=== PATIENT | male | born 1995 | race Caucasian/White ===

== ENCOUNTER 2023-09-15 10:00 | Outpatient (OUT) | payer BC, SELFPAY ==
--- NOTE | 2023-09-15 | ECG_ITS ---
[facility] Test Date: 2023-09-15 Pat Name: GUSTAVO WOLF Department: Room: - Gender: Male [employer] Working [employer]: : 1995 Requested By: ATIF WILSON Order Number: [id number] Reading MD: CANDIE ROSALES Measurements Intervals [place] Rate: 57 P: 38 GA: 194 QRS: 82 QRSD: 101 T: 52 QT: 387 QTc: 379 Interpretive Statements SINUS BRADYCARDIA LEFT ATRIAL ENLARGEMENT [-0.15mV P WAVE IN V1/V2] Compared to ECG 11/28/2017 23:38:01 Atrial abnormality now present Sinus rhythm no longer present First degree AV block no longer present Electronically Signed On 09-15-2023 22:13:13 EDT by CANDIE ROSALES
[2023-09-15 11:02] LABS: Basophils Percent Auto 0.5 % (0.2-2.0); Eosinophils Absolute Auto 0.2 10^3/uL (0.0-0.7); Eosinophils Percent Auto 3.2 % (0.9-7.0); Hematocrit 45.3 % (42.0-54.0); Hemoglobin 15.1 g/dL (14.0-18.0); Immature Granulocytes Abs Auto 0.02 10^3/uL (0.00-0.03); Immature Granulocytes Pct Auto 0.4 % (0.0-0.5); Lymphocytes Absolute Auto 1.6 10^3/uL (1.2-3.8); Lymphocytes Percent Auto 28.3 % (20.5-60.0); Mean Corpuscular HGB Conc 33.3 g/dL (29.9-35.2); Mean Corpuscular Hemoglobin 29.1 pg (25.9-34.0); Mean Corpuscular Volume 87.3 fL (80.0-94.0); Monocytes Absolute Auto 0.6 10^3/uL (0.3-0.8); Neutrophils Absolute Auto 3.1 10^3/uL (1.4-6.5); Neutrophils Percent Auto 56.6 % (43.0-75.0); Platelet Count 300 10^3/uL (150-450); Red Blood Count 5.19 10^6/uL (4.70-6.10); Red Cell Distribution Width 12.1 % (11.0-15.0); White Blood Count 5.6 10^3/uL (4.0-11.0)
[2023-09-15 12:02] LABS: Alanine Aminotransferase 23 U/L (16-63); Albumin Globulin Ratio 1.2; Alkaline Phosphatase 90 U/L (46-116); Anion Gap 15.1; Aspartate Amino Transferase 17 U/L (15-37); BUN Creatinine Ratio 10.5; Bilirubin Total 0.5 mg/dL (0.2-1.0); Calcium 8.7 mg/dL (8.5-10.1); Carbon Dioxide 25.2 mmol/L (21.0-32.0); Chloride 105 mmol/L (98-107); Chol HDL Ratio 2.5; Cholesterol 129 mg/dL (<=200); Estimated GFR (African America >60 (>=60); Estimated GFR (Non-African Ame >60 (>=60); Globulin 3.3 g/dL; Glucose 79 mg/dL (74-106); HDL Cholesterol 51 mg/dL (40-60); LDL Cholesterol Calculated 67.4 mg/dL; Potassium 4.3 mmol/L (3.5-5.1); Sodium 141 mmol/L (136-145); Thyroid Stimulating Hormone 2.792 uIU/mL (0.358-3.740); Total Protein 7.3 g/dL (6.4-8.2); Triglycerides 53 mg/dL (<=150); VLDL CHOLESTEROL 10.6 mg/dL
== END 2023-09-15 10:01 | disposition home or self-care (01) ==
PROVIDERS: PCP Family Medicine; Visit Provider Family Medicine
DX: Z00.00 Encounter for general adult medical examination without abnormal findings (principal); R07.9 Chest pain, unspecified
CPT/HCPCS: 36415; 80053; 80061; 84443; 85025; 93005

== ENCOUNTER 2023-09-28 08:54 | Outpatient (OUT) | payer BC, SELFPAY ==
--- NOTE | 2023-09-28 09:00 | CA_ITS ---
Patient Name: GUSTAVO WOLF MR#: [id number] : 1995 Exam Date: 09/28/2023 Ordering Doctor: DR Veena Page M.D. ECHOCARDIOGRAM REPORT PROCEDURE: CA ECHO DOPPLER COMPLETE INDICATIONS: Left atrial enlargement and cardiomegaly seen on ECG COMPARISON: None. DESCRIPTION: COMPLETE ECHOCARDIOGRAM Real-time transthoracic echocardiography with 2D, M-mode, spectral and color flow Doppler performed. QUALITY: Technical quality was good. 72 , 190#, BP 138/80 LEFT VENTRICLE: Normal chamber size. Normal left ventricular wall thickness. Normal systolic function. LV EF: Normal left ventricular ejection fraction, (55%). DIASTOLIC: Normal diastolic function. ATRIAL SEPTUM: Visually appears intact. LEFT ATRIUM: Normal chamber size. RIGHT ATRIUM: Normal chamber size. RIGHT VENTRICLE: Normal chamber size. TRICUSPID VALVE: Normal mobility and thickness. No stenosis with trivial regurgitation. No evidence of pulmonary hypertension. RVSP 25 mmHg MITRAL VALVE: Normal mobility and thickness. No evidence of mitral valve stenosis. There is no mitral annular calcification. No mitral regurgitation. AORTIC VALVE: Normal trileaflet appearance. No visible sclerosis. Normal leaflet mobility. No evidence of aortic valve stenosis. No aortic regurgitation. AORTIC ROOT: Normal diameter and appearance. Ascending aorta is normal in size. PULMONIC VALVE: Normal thickness and mobility. No stenosis. Trivial regurgitation. PERICARDIUM: No evidence of pericardial effusion. IVC: Collapses with inspirations. Normal in size. PLEURA: CONCLUSION: 1. Normal ventricular size and systolic function. LVEF is 55%. 2. Normal diastolic function. 3. No significant valvular dysfunction. 4. Normal right-sided pressures. 5. No pericardial effusion. Adult Echocardiography Procedure Report Left Ventricle LVEDD (3.7 - 5.6 cm): 4.57 cm LVESD (2.2 - 4.0 cm): 3.19 cm LVIVS thickness (0.6 - 1.2 cm): 0.82 cm LVPW thickness (0.5 - 1.0 cm): 0.91 cm E - e': 4.05 LVOT Max Gradient: 2.29 mm[Hg] LVOT Area (cm2): 0.76 m/s Peak Velocity (LVOT): 0.76 m/s Mean Velocity (LVOT): 0.54 m/s LVOT Diameter 2.43 cm Left Atrium LA Volume Index (2D A2C): 27.39 ml/m2 Left Atrium Systolic Dimension: 2.57 cm Mitral Valve MV E to A Ratio: 1.62 Mitral Valve A-Wave Peak Velocity: 0.44 m/s Mitral Valve E-Wave Peak Velocity: 0.71 m/s Right Ventricle Aorta AO Root Diam: 3.42 cm Ascending Ao Diam: 2.65 cm Aortic Valve AoV Area (Peak Gerhard): 4.02 cm2, 4.02 cm2 AoV Area (VTI): 4.45 cm2, 4.45 cm2 Peak Velocity(Antegrade Flow): 0.87 m/s Peak Gradient(Antegrade Flow): 3.05 mm[Hg] Mean Velocity(Antegrade Flow): 0.54 m/s Mean Gradient(Antegrade Flow): 1.42 mm[Hg] Velocity Time Integral: 17.71 cm Tricuspid Valve Peak Velocity (Regurgitant Flow): 2.33 m/s Pulmonic Valve Peak Gradient: 4.03 mm[Hg], 2.87 mm[Hg] Right Atrium Right Atrium Systolic Pressure: 34.51 ml, 34.51 ml Dictated by: Nathen Murphy M.D. on 09/28/2023 at 18:16 Approved by: Nathen Murphy M.D. on 09/28/2023 at 18:19
== END 2023-09-28 08:55 | disposition home or self-care (01) ==
LOC: CARD 08:55
PROVIDERS: PCP Family Medicine; Visit Provider Family Medicine
DX: I51.7 Cardiomegaly (principal)
CPT/HCPCS: 93306